=== PATIENT | female | born 1965 | race Caucasian/White ===

== ENCOUNTER → 2025-06-12 | Outpatient (CLI) | payer OTHER, SELFPAY ==
[2025-06-12 11:20] LABS: EXAGEN MAILED SPECIMEN
[2025-06-12 12:24] LABS: Hematocrit 42.2 % (37-47); Hemoglobin 14.0 g/dL (12.0-15.0); Immature Granulocytes Count 0.040 X10^3/uL (0.0-0.0); Mean Corp Hgb Conc 33.2 g/dL (32-36); Mean Corpuscular Volume 88.5 fL (81-99); Mean Platelet Vol. 10.5 fl (6.2-12.0); NRBC Flagged by Analyzer 0 % (0-5); Platelet Count 324 K/mm3 (150-450); RBC Distribution Width CV 13.7 % (11.6-14.6); RBC Distribution Width SD 44.6 fl (35.1-43.9); Red Blood Count 4.77 M/mm3 (4.2-5.4); White Blood Count 11.1 K/mm3 (4.4-11.0)
[2025-06-12 12:31] LABS: Prothrombin Time (Protime)PT. 12.3 SECONDS (11.7-14.9)
[2025-06-12 12:32] LABS: Partial Thromboplast Time 26.4 Seconds (24.1-36.2)
[2025-06-12 13:03] LABS: Color, Urine Yellow (Yellow); Glucose, Dipstick Normal (Normal); Ketone-Dipstick Negative (Negative); Leukocyte Esterase-Dipstick Negative /ul (Negative); Nitrite-Dipstick Negative (Negative); Occult Blood-Urine 10 /ul (Negative); Protein-Dipstick 15 mg/dl (Negative); Specific Gravity, Urine 1.025 (1.002-1.030); Urine Bilirubin Dipstick Negative (Negative)
[2025-06-12 13:41] LABS: AST(SGOT) 15 U/L (<=31); Alanine Aminotransfer ALT/SGPT 22 U/L (<=34); Albumin, Serum 4.1 g/dL (3.5-5.0); Alkaline Phosphatase 70 U/L (35-104); Anion Gap 14 (5-15); BUN 11 mg/dL (4-19); BUN/Creat Ratio 17.1 RATIO (10-20); Calcium,Total 9.4 mg/dL (7.6-11.0); Carbon Dioxide 21.5 mmol/L (21.0-32.0); Chloride 102 mmol/L (98-108); Globulin 3.2 g/dL (2.2-4.2); Glucose 97 mg/dL (70-99); Hepatitis B Surface Antigen Nonreactive (Nonreactive); Hepatitis C Antibody Nonreactive (Nonreactive); Potassium 4.3 mmol/L (3.3-5.1)
[2025-06-12 14:31] LABS: Creatinine, Urine (random) 219.00 mg/dL (28.00-217.00); Protein, Urine (Random) 21.2 mg/dL (0.0-12.0); Protein:Creat Ratio 97 mg/g CRE (0-200)
[2025-06-15 07:07] LABS: Anti-Smooth Muscle ABS 22 Units (0-19); Dilute Russell Viper Venom 45.6 sec (0.0-47.0); Interpretation Comment: (.); PTT-LA 42.4 sec (0.0-43.5)
== END | disposition home or self-care (01) ==
PROVIDERS: PCP Family Medicine; Referring Provider Internal Medicine Rheumatology; Visit Provider Internal Medicine Rheumatology
DX: M06.4 Inflammatory polyarthropathy (principal); R76.8 Other specified abnormal immunological findings in serum
CPT/HCPCS: 36415; 80053; 81002; 82570; 83516; 84156; 85025; 85598; 85610; 85730; 86706; 86803; 87340